=== PATIENT | female | born 1945 | race Caucasian/White ===

== ENCOUNTER 2016-07-04 03:10 | Emergency (ER) | payer OTHER ==
[~2016-07-04] VITALS: Ht 157.5 cm; Wt 54.4 kg
[~2016-07-04 03:10] MED LIST: ACTOS15 MG PO; BACTRIM DS 800/1 TAB PO; BP MEDS; CALCIUM + D 5001 TAB PO; CARVEDILOL3.125 MG PO; CIPRO500 MG PO; CLEOCIN HCL300 MG PO; COMPAZINE5 M1 PO; COZAAR50 MG PO; DEXILANT60 MG PO; FLORASTOR 33 MG1 CAP PO; GLUCOPHAGE500 MG PO; Gabapentin PO; HEPARIN SOD5000 U/M1 SUBQ; LEVAQUIN500 MG PO; LEVEMIR100 U/ML SUBQ; LOPRESSOR50 MG PO; METFORMIN500 MG PO; METOPROLOL50 M1 PO; MOTRIN800 MG PO; NORCO 325 MG-51 TAB PO; NORCO 5/325 MG1 TAB PO; OMEPRAZOLE20 M3 PO; ORETIC25 MG PO; PEPCID20 MG PO; Pantoprazole Sodium PO; RANITIDINE300 M1 PO; ROBITUSSIN/CODEI5 ML PO; ROCEPHIN 11000 MG/50 IV; SIMVASTATIN20 M1 PO; SLOW-K8 ME1 PO; TOPROL XL50 MG PO; ULTRAM50 MG PO; UNK HTN MED; VICODIN 300 MG-1 TAB PO; VICODIN 5/500 M1 TAB PO; VITAMIN C500 M8 PO; ZESTRIL20 MG PO; ZOFRAN ODT4 MG PO; [UNRECOGNIZED DRUG - OTHER]; [UNRECOGNIZED DRUG - REMARK]; [UNRECOGNIZED DRUG - REMARK]
[2016-07-04 03:34] VITALS: BP 185/88
--- NOTE | 2016-07-04 03:35 | NUR ---
PT C/O LOW BLOOD SUGAR AND WEAKNESS AT 0200 AND ATE PLANTAINS. VOMITED X2 THIS MORNING. CURRENT BS 186 HX: ABD PROBLEMS, HTN, GASTRITIS, DM PT DENIES N/V/D; SKIN IS PINK/WARM/DRY; AAOX4 WITH EVEN AND STEADY GAIT; LUNGS CLEAR BL; HR EVEN AND REGULAR; PT DENIES ANY FEVER, CP, SOB, OR COUGH AT THIS TIME; PATIENT STATES PAIN OF 0/10 AT THIS TIME; VSS; PATIENT POSITIONED FOR COMFORT; HOB ELEVATED; BEDRAILS UP X2; BED DOWN. ER MD MADE AWARE OF PT STATUS.
--- NOTE | 2016-07-04 04:15 | NUR ---
BIB WHEELCHAIR TO ER BED 2
[2016-07-04] MEDS ORDERED: NACL 0.9% 1,000 ML IV ONE (04:30)
--- NOTE | 2016-07-04 04:45 | NUR ---
PT REFUSING LABS, IVF AND VSS AT THIS TIME.
--- NOTE | 2016-07-04 04:51 | NUR ---
PT DOES NOT WANT MEDS/IVF OR TO BE HERE AT THIS TIME. DR. WILKINS INFORMED. HE WILL TALK TO PT AND WRITE DISCHARGE ORDERS.
[2016-07-04 04:52] VITALS: BP 133/88
--- NOTE | 2016-07-04 04:57 | NUR ---
DR WLIKINS AT BEDSIDE TALKING WITH PT
--- NOTE | 2016-07-04 05:20 | NUR ---
PT DISCHARGED WITH AFTER TALKING WITH MD. DISCHARGE INSTRUCTIONS GIVEN. PT STABLE.
== END 2016-07-04 05:15 | disposition home or self-care (01) ==
LOC: MED 03:10
DX: E16.2 Hypoglycemia, unspecified (principal); E11.9 Type 2 diabetes mellitus without complications; K21.9 Gastro-esophageal reflux disease without esophagitis; I10 Essential (primary) hypertension; Z79.4 Long term (current) use of insulin; Z79.899 Other long term (current) drug therapy

== ENCOUNTER 2017-04-09 17:01 | Emergency (ER) | payer OTHER ==
[~2017-04-09 17:01] MED LIST changes: +ACET-2869 PO; +ACET-8386 PO; -ACTOS15 MG PO; +ASCO500T45 PO; -BACTRIM DS 800/1 TAB PO; -BP MEDS; -CALCIUM + D 5001 TAB PO; +CARV3.122 PO; -CARVEDILOL3.125 MG PO; +CIPR500T4 PO; -CIPRO500 MG PO; -CLEOCIN HCL300 MG PO; +CLIN300C2 PO; -COMPAZINE5 M1 PO; +COZ50 PO; -COZAAR50 MG PO; -DEXILANT60 MG PO; -FLORASTOR 33 MG1 CAP PO; -GLUCOPHAGE500 MG PO; +HEPA500056 SUBQ; -HEPARIN SOD5000 U/M1 SUBQ; +IBUP-974 PO; -LEVAQUIN500 MG PO; +LEVEMIR SUBQ; -LEVEMIR100 U/ML SUBQ; -LOPRESSOR50 MG PO; +METF500T PO; -METFORMIN500 MG PO; -METOPROLOL50 M1 PO; -MOTRIN800 MG PO; -NORCO 325 MG-51 TAB PO; -NORCO 5/325 MG1 TAB PO; -OMEPRAZOLE20 M3 PO; -ORETIC25 MG PO; -PEPCID20 MG PO; +RANI300T35 PO; -RANITIDINE300 M1 PO; -ROBITUSSIN/CODEI5 ML PO; -ROCEPHIN 11000 MG/50 IV; +SIMV20TA6 PO; -SIMVASTATIN20 M1 PO; -SLOW-K8 ME1 PO; -TOPROL XL50 MG PO; +TRAM50TA1 PO; -ULTRAM50 MG PO; -UNK HTN MED; -VICODIN 300 MG-1 TAB PO; -VICODIN 5/500 M1 TAB PO; -VITAMIN C500 M8 PO; -ZESTRIL20 MG PO; -ZOFRAN ODT4 MG PO; -[UNRECOGNIZED DRUG - OTHER]; -[UNRECOGNIZED DRUG - REMARK]; -[UNRECOGNIZED DRUG - REMARK]
--- NOTE | 2017-04-09 17:54 | NUR ---
UPON ENTRANCE INTO TRIAGE, PT REQUESTED ASSISTANCE WITH REWRAPPING HER RIGHT ARM, BANDAGE HAD BECOME LOOSE, STAFF ASSISTED PT WITH REWRAPPING ARM. PT THEN STATED SHE DID NOT WANT TO SEE , SHE ONLY NEEDED HELP REWRAPPING HER ARM. PATIENT LEFT WITHOUT BEING SEEN BY DR. BROWN. NO FURTHER CARE PROVIDED FOR PATIENT.
== END 2017-04-09 17:54 | disposition left against medical advice (07) ==
LOC: MED 17:01
DX: Z53.21 Procedure and treatment not carried out due to patient leaving prior to being seen by health care provider (principal)

== ENCOUNTER 2017-06-04 22:57 | Emergency (ER) | payer OTHER ==
[~2017-06-04] VITALS: Ht 157.5 cm; Wt 54.4 kg
[2017-06-04 23:06] VITALS: BP 166/93
--- NOTE | 2017-06-04 23:15 | NUR ---
TO ER BED 1 BY WHEELCHAIR
--- NOTE | 2017-06-04 23:18 | NUR ---
72/F CAME IN W C/O N/V AND ABDOMINAL PAIN X 2 DAYS. PT STATES SHE WAS SEEN BY PMD AND WAS GIVEN AUGMENTIN TODAY BUT SYMPTOMS WORSEN. BS ACTIVE X 4, ABD SOFT, ROUND, DIFFUSED TENDERNESS. PT DENIES FEVER, SOB/COUGH/CP. PMH: HTN, DM
[2017-06-04 23:48] LABS: HEMATOCRIT 34.3 % (36-48); HEMOGLOBIN 11.3 g/dL (12.0-16.0); MEAN CORPUSCULAR HEMOGLOBIN 29 pg (27-31); MEAN CORPUSCULAR HGB CONC 33 g/dL (33-37); MEAN CORPUSCULAR VOLUME 89 fL (80-94); PLATELET COUNT (AUTO) 210 K/uL (140-450); RED BLOOD CELL COUNT(AUTO) 3.84 MIL/uL (4.20-5.40); RED CELL DISTRIBUTION WIDTH 13.6 % (11.6-13.7); WHITE BLOOD COUNT (AUTO) 11.2 K/uL (4.8-10.8)
[2017-06-04 23:50] LABS: APPEARANCE,URINE CLEAR (CLEAR); BILIRUBIN,URINE NEGATIVE (NEGATIVE); BLOOD, URINE TRACE-I (NEGATIVE); COLOR,URINE YELLOW (YELLOW); LEUKOCYTE ESTERASE ,URINE 3+ (NEGATIVE); NITRITE, URINE NEGATIVE (NEGATIVE); PH,URINE 6.5 (5.0-9.0); UGLUCOSE TRACE (NEGATIVE)
[2017-06-05 00:05] LABS: ANION GAP 11.4 (8-16); CARBON DIOXIDE 28.8 mmol/L (21-32); POTASSIUM 3.2 mmol/L (3.5-5.1)
[2017-06-05 00:13] LABS: EOSINOPHILS % (MANUAL) 3 % (0-4); LYMPHOCYTES % (MANUAL) 17 % (20-46); MONOCYTES % (MANUAL) 3 % (5-12)
[2017-06-05 00:20] LABS: ALBUMIN 3.5 g/dL (3.4-5.0); TOTAL BILIRUBIN 0.6 mg/dL (0.0-1.0)
[2017-06-05 00:37] LABS: RBC,URINE 3-10 (FEW) /HPF (0-5); WBC,URINE TOO MANY TO COUNT /HPF (0-5)
--- NOTE | 2017-06-05 01:25 | NUR ---
Patient discharged with v/s stable. Written and verbal after care instructions given and explained. Patient alert, oriented and verbalized understanding of instructions. Ambulatory with steady gait. All questions addressed prior to discharge. ID band removed. Patient advised to follow up with PMD. Rx of CIPROFLAXACIN AND ZOFRAN given. Patient educated on indication of medication including possible reaction and side effects. Opportunity to ask questions provided and answered. Addendum: 06/05/17 at 0129 by DARLYN IV removed, catheter intact and site benign. Applied folded 4x4 gauze and tape to stop bleeding.
[2017-06-05 01:28] VITALS: BP 158/63
== END 2017-06-05 01:25 | disposition home or self-care (01) ==
LOC: MED 22:57
DX: K52.9 Noninfective gastroenteritis and colitis, unspecified (principal); N39.0 Urinary tract infection, site not specified; E11.9 Type 2 diabetes mellitus without complications; I10 Essential (primary) hypertension
CPT/HCPCS: 36415; 71045; 80053; 81001; 82948; 83605; 83880; 84484; 85025; 87040; 87086; 87186; 93005; 99285

== ENCOUNTER 2017-11-13 18:15 | Emergency (ER) | payer OTHER ==
[~2017-11-13] VITALS: Ht 157.5 cm; Wt 51.7 kg
[2017-11-13 18:31] VITALS: BP 160/76
--- NOTE | 2017-11-13 19:25 | NUR ---
patient was able to use the restroom by wheelchair
--- NOTE | 2017-11-13 19:54 | NUR ---
is with patient
--- NOTE | 2017-11-13 20:12 | NUR ---
Patient came in with pain in right toe. Patient has swelling with some edema pitting of a 3+ upon assessment. patient has little to no nail on the right big toe. 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 patient alpa any pain during assessment and no nausea, vomiting or abd pain. patient is anxious regarding wanting to go home. patient is able to use her wheelchair for ambulation without assistance. patient has a history of diabetes, high cholesterol and HTN. patient is bulgarian speaking and is unable to communicate with any spanish. MD was able to translate upon assessment.
[2017-11-13 21:21] LABS: BASOPHILS # (AUTO) 0.1 K/uL (0.00-0.22); BASOPHILS % (AUTO) 1.1 % (0.0-2.0); EOSINOPHILS # (AUTO) 0.2 K/uL (0-0.4); EOSINOPHILS % (AUTO) 3.5 % (0.0-4.0); HEMATOCRIT 36.3 % (36-48); LYMPHOCYTES # (AUTO) 0.8 K/uL (2.5-16.5); LYMPHOCYTES % (AUTO) 13.7 % (20.5-51.1); MEAN CORPUSCULAR HEMOGLOBIN 28 pg (27-31); MEAN CORPUSCULAR HGB CONC 33 g/dL (33-37); MEAN CORPUSCULAR VOLUME 83.6 fL (80-94); MONOCYTES # (AUTO) 0.7 K/uL (0.8-1.0); MONOCYTES % (AUTO) 11.7 % (1.7-9.3); NEUTROPHILS # (AUTO) 4.1 K/uL (1.8-7.7); PLATELET COUNT (AUTO) 219 K/uL (140-450); RED BLOOD CELL COUNT(AUTO) 4.34 MIL/uL (4.20-5.40); RED CELL DISTRIBUTION WIDTH 15.1 % (11.6-13.7); WHITE BLOOD COUNT (AUTO) 5.8 K/uL (4.8-10.8)
--- NOTE | 2017-11-13 21:40 | NUR ---
x ray is with patient at bedside
[2017-11-13 22:30] LABS: ALBUMIN 3.9 g/dL (3.4-5.0); ANION GAP 14.7 (8-16); CREATININE 1.1 mg/dL (0.6-1.3); POTASSIUM 3.7 mmol/L (3.5-5.1); TOTAL BILIRUBIN 0.8 mg/dL (0.0-1.0)
[2017-11-13 23:00] VITALS: BP 142/82
--- NOTE | 2017-11-13 23:00 | NUR ---
Patient discharged with v/s stable. Written and verbal after care instructions given and explained. Patient alert, oriented and verbalized understanding of instructions. Wheel Chair Assisted with . All questions addressed prior to discharge. ID band removed. Patient advised to follow up with PMD. Rx of Lasix and Potassium Chloride given. Patient educated on indication of medication including possible reaction and side effects. Opportunity to ask questions provided and answered.
== END 2017-11-13 23:00 | disposition home or self-care (01) ==
LOC: MED 18:15
DX: R60.0 Localized edema (principal); J90 Pleural effusion, not elsewhere classified; R11.10 Vomiting, unspecified; R19.7 Diarrhea, unspecified; R10.9 Unspecified abdominal pain; I10 Essential (primary) hypertension; E11.9 Type 2 diabetes mellitus without complications; K21.9 Gastro-esophageal reflux disease without esophagitis; Z89.512 Acquired absence of left leg below knee; Z79.899 Other long term (current) drug therapy
CPT/HCPCS: 36415; 71045; 80053; 83880; 84484; 85025; 93005; 99285

== ENCOUNTER 2018-12-08 11:11 | Emergency (ER) | payer OTHER ==
[~2018-12-08] VITALS: Ht 152.4 cm; Wt 52.6 kg
[~2018-12-08 11:11] MED LIST changes: -ACET-2869 PO; -CIPR500T4 PO; -CLIN300C2 PO; +HYDR-5122 PO
[2018-12-08 11:19] VITALS: BP 142/72
--- NOTE | 2018-12-08 11:25 | NUR ---
C/O BURN TO OUTER L THIGH X 1 DAY. PAIN 7/10 & STINGING. PER PT SON, THE PT DROPPED HOT WATER ON HER LEG YESTERDAY. THE SKIN IS RED & RAW AND HAS SLOUGHING TO THE BURN AREA. NO DRAINAGE NOTED. PT HAD A BTK AMPUTATION TO THE LLE. PT IN WHEELCHAIR AT BEDSIDE. SON WITH PATIENT.
--- NOTE | 2018-12-08 11:30 | NUR ---
DR. SEARS EVALUATING PT AT BEDSIDE
[2018-12-08] MEDS ORDERED: HYDROcodone/APAP 5/325 MG 1 TAB TAB PO ONE (11:35)
[2018-12-08] MEDS ORDERED: BACITRACIN OINT 500 UNITS/GM PKT TP ONE ×2 (11:35→12:10)
[2018-12-08 13:02] VITALS: BP 119/52
--- NOTE | 2018-12-08 13:02 | NUR ---
Patient discharged with v/s stable. Written and verbal after care instructions given and explained. Patient alert, oriented and verbalized understanding of instructions. Patient wheel chair assisted to car. All questions addressed prior to discharge. ID band removed. Patient advised to follow up with PMD. Rx of [place]iff[place] given. Patient educated on indication of medication including possible reaction and side effects. Opportunity to ask questions provided and answered.
== END 2018-12-08 13:02 | disposition home or self-care (01) ==
LOC: MED 11:11
DX: T24.212A Burn of second degree of left thigh, initial encounter (principal); E11.9 Type 2 diabetes mellitus without complications; K21.9 Gastro-esophageal reflux disease without esophagitis; I10 Essential (primary) hypertension; Z98.890 Other specified postprocedural states; Z79.4 Long term (current) use of insulin; Z79.899 Other long term (current) drug therapy; X11.8XXA Contact with other hot tap-water, initial encounter; Y93.89 Activity, other specified; Y92.89 Other specified places as the place of occurrence of the external cause; Y99.8 Other external cause status
CPT/HCPCS: 16020; 90471; 90715; 99283; 99284

== ENCOUNTER 2019-05-17 10:41 | Emergency (ER) | payer OTHER ==
[~2019-05-17] VITALS: Ht 160 cm; Wt 52.2 kg
[2019-05-17 10:41] VITALS: BP 163/63
[~2019-05-17 10:41] MED LIST changes: -COZ50 PO; +LOSA50TA57 PO; +SIMV-30 PO; -SIMV20TA6 PO
--- NOTE | 2019-05-17 10:50 | NUR ---
PT BIBA TO BED 08.
[2019-05-17] MEDS ORDERED: METO5SOL19 PO (11:05)
[2019-05-17] MEDS ORDERED: VOL25 PO (11:05)
[2019-05-17] MEDS ORDERED: CALC-53 PO (11:05)
[2019-05-17] MEDS ORDERED: LOSA100T1 PO (11:05)
[2019-05-17] MEDS ORDERED: NAPR-54 PO (11:05)
[2019-05-17] MEDS ORDERED: TRAZ-343 PO (11:05)
[2019-05-17] MEDS ORDERED: HYDR-5122 PO (11:05)
[2019-05-17] MEDS ORDERED: ATA25 PO (11:05)
[2019-05-17] MEDS ORDERED: RANI300S3 PO (11:05)
--- NOTE | 2019-05-17 11:05 | NUR ---
Pt arrived from home with bag of medications, per EMS and family pt is non complaint and takes medications at random whenever she feels like it.
[2019-05-17] MEDS ORDERED: fentaNYL 0.05 MG/ML VIAL IVP ONE (11:15)
--- NOTE | 2019-05-17 11:27 | NUR ---
C/O PAIN TO RIGHT HIP 03/04 X2 DAYS. PT REPORTS SHE RECENTLY HAD "HIP SURGERY" AT [facility] BUT DOES NOT KNOW EXACTLY WHAT WAS DONE. PT STATES SHE WAS ATTEMPTING TO GET OUT OF BED 2 DAYS AGO AND HEARD A "POP". PT HAS A PICC LINE TO R UPPER ARM AND STATES THAT IT IS FOR ANTIBIOTICS. OBVIOUS SHORTENING OF R KNEE NOTED AT THIS TIME. 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 CMS INTACT.
--- NOTE | 2019-05-17 11:36 | NUR ---
C/O PAIN TO RIGHT HIP 03/04 X2 DAYS. PT REPORTS SHE RECENTLY HAD "HIP SURGERY" AT [facility] BUT DOES NOT KNOW EXACTLY WHAT WAS DONE. PT STATES SHE WAS ATTEMPTING TO GET OUT OF BED 2 DAYS AGO AND HEARD A "POP". PT HAS A PICC LINE TO R UPPER ARM AND STATES THAT IT IS FOR ANTIBIOTICS. OBVIOUS SHORTENING OF R KNEE NOTED AT THIS TIME. 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 CMS INTACT.
--- NOTE | 2019-05-17 11:36 | NUR ---
PT LEFT TO XRAY VIA [facility]IE[facility]
[2019-05-17] MEDS ORDERED: HYDROcodone/APAP 7.5/325 MG 1 TAB PO ONE (11:55)
[2019-05-17 12:26] LABS: BASOPHILS % (AUTO) 0.3 % (0.0-2.0); EOSINOPHILS # (AUTO) 0.2 K/uL (0-0.4); EOSINOPHILS % (AUTO) 2.3 % (0.0-4.0); HEMATOCRIT 25.8 % (36-48); HEMOGLOBIN 8.5 g/dL (12.0-16.0); LYMPHOCYTES # (AUTO) 0.8 K/uL (2.5-16.5); LYMPHOCYTES % (AUTO) 8.4 % (20.5-51.1); MEAN CORPUSCULAR HEMOGLOBIN 33 pg (27-31); MEAN CORPUSCULAR HGB CONC 33 g/dL (33-37); MEAN CORPUSCULAR VOLUME 98.8 fL (80-94); MONOCYTES # (AUTO) 0.8 K/uL (0.8-1.0); MONOCYTES % (AUTO) 8.6 % (1.7-9.3); NEUTROPHILS # (AUTO) 7.9 K/uL (1.8-7.7); NEUTROPHILS % (AUTO) 80.4 % (42.2-75.2); PLATELET COUNT (AUTO) 388 K/uL (140-450); RED BLOOD CELL COUNT(AUTO) 2.61 MIL/uL (4.20-5.40); RED CELL DISTRIBUTION WIDTH 14.2 % (11.6-13.7); WHITE BLOOD COUNT (AUTO) 9.8 K/uL (4.8-10.8)
[2019-05-17 12:35] LABS: ANION GAP 15.2 (8-16); CARBON DIOXIDE 22.3 mmol/L (21-32); CHLORIDE 99 mmol/L (98-107); CREATININE 0.9 mg/dL (0.6-1.3); GLUCOSE 253 mg/dL (74-106); POTASSIUM 3.5 mmol/L (3.5-5.1); SODIUM SERUM 133 mmol/L (136-145); UREA NITROGEN, BLOOD 12 mg/dL (7-18)
--- NOTE | 2019-05-17 12:40 | NUR ---
PT LEFT TO CT VIA RNEY
--- NOTE | 2019-05-17 12:52 | NUR ---
PT RETURNED FROM CT
--- NOTE | 2019-05-17 15:18 | NUR ---
PT LAYING IN BED, RR EVEN AND UNLABORED. REPORTS TOLERABLE R HIP PAIN AT THIS TIME. PER DR WIGGINS, PT CAN EAT, PT GIVEN SANDWICH AND WATER AT THIS TIME. PT'S DAUGHTER IN LAW AT BEDSIDE, UPDATED THAT PT IS GETTING TRANSFERRED TO [facility].
[2019-05-17] MEDS ORDERED: CEFA2SYR IV (16:29)
[2019-05-17] MEDS ORDERED: MORPHINE SULFATE 4 MG/ML SYR IVP ONE (16:40)
[2019-05-17] MEDS ORDERED: ceFAZolin 1,000 MG VIAL ONE (16:49)
--- NOTE | 2019-05-17 17:29 | NUR ---
BOTH WOUNDS CLEANSED WITH NS AND GAUZE, PATTED DRY, COVERED WITH COMPOSITE DRESSING IN RIGHT HIP. SITE IS WITH SUTURES, NO REDNESS, NO ERYTHEMATOUS, NO EDEMA, NO PURULENT DRAINAGE, APPROXIMATED WELL.
--- NOTE | 2019-05-17 17:31 | NUR ---
PATIENT ALERT AND ORIENTED, BREATHING EVEN AND UNLABORED, DAUGHTER AT BEDSIDE. DIAPER CHANGED.
--- NOTE | 2019-05-17 18:02 | NUR ---
PT'S DAUGHTER IN LAW- MONA [phone] PT'S SON BRYANT [phone]
--- NOTE | 2019-05-17 18:25 | NUR ---
PATIENT RESTING WITH EYES CLOSED, BREATHING EVEN AND UNLABORED. WILL CONTINUE TO MONITOR.
--- NOTE | 2019-05-17 20:54 | NUR ---
PATIENT ALERT AND ORIENTED, BREATHING EVEN AND UNLABORED, EATING FOOD BROUGHT IN BY DAUGHTER
--- NOTE | 2019-05-17 21:12 | NUR ---
RESTING COMFORTABLY IN BED WITH EYES CLOSED. BREATHING EVEN, UNLABORED. AROUSABLE TO VERBAL STIMULI. NO S/SX RESP DISTRESS AT THIS TIME.
--- NOTE | 2019-05-17 21:38 | NUR ---
Patient to be transferred to [facility]. Is being transferred due to RIGHT FRACTURE OF GREATER TROCHANTER. Receiving facility has accepting physician and available space. ER physician has signed transfer form. Patient or responsible alliance party has agreed to transfer and signed form. Patient belongings inventoried and will be sent with patient. Copy of nursing notes, lab reports, EKG, Physicians Orders and X-rays to be sent with patient. Report called to NOE FRYE at receiving facility. [facility] ambulance service has been called for transfer. ETA is 60.
--- NOTE | 2019-05-17 22:34 | NUR ---
PATIENT STATES THAT SHE IS IN PAIN, DR BARAJAS NOTIFIED
[2019-05-17] MEDS ORDERED: MORPHINE SULFATE 2 MG/ML SYR IVP ONE (22:35)
--- NOTE | 2019-05-17 23:06 | NUR ---
[facility] TRANSPORT AT BEDSIDE
[2019-05-17 23:21] VITALS: BP 130/48
--- NOTE | 2019-05-17 23:21 | NUR ---
[facility] TOOK PATIENT FOR TRANSFER
--- NOTE | 2019-05-17 23:23 | NUR ---
CALLED PT'S DAUGHTER IN LAW MONA, UPDATED THAT PT IS BEING TAKEN BY [facility] TO [facility], ROOM [id number].
== END 2019-05-17 23:21 | disposition short-term general hospital (02) ==
LOC: MED 10:41
DX: S72.111A Displaced fracture of greater trochanter of right femur, initial encounter for closed fracture (principal); I10 Essential (primary) hypertension; E11.9 Type 2 diabetes mellitus without complications; K21.9 Gastro-esophageal reflux disease without esophagitis; X58.XXXA Exposure to other specified factors, initial encounter; Y93.89 Activity, other specified; Y92.092 Bedroom in other non-institutional residence as the place of occurrence of the external cause; Y99.8 Other external cause status; Z79.899 Other long term (current) drug therapy; Z98.890 Other specified postprocedural states
CPT/HCPCS: 36415; 72192; 73502; 80048; 85025; 86886; 86900; 86901; 96365; 96375; 96376; 99285; J0690; J2270; J3010